=== PATIENT | male | born 2000 | race Caucasian/White ===

== ENCOUNTER 2019-10-09 00:19 | Emergency (ER) | payer SELFPAY ==
[~2019-10-09] VITALS: Ht 172.7 cm; Wt 56.7 kg
[2019-10-09 00:25] VITALS: BP 152/72
--- NOTE | 2019-10-09 00:29 | NUR ---
PT IN TENT.
[2019-10-09 01:24] VITALS: BP 152/72
--- NOTE | 2019-10-09 01:25 | NUR ---
PATIENT LEFT WITHOUT BEING SEEN BY DR. POLANCO. NO FURTHER CARE PROVIDED FOR PATIENT.
== END 2019-10-09 01:25 | disposition left against medical advice (07) ==
LOC: MED 00:19
DX: J02.9 Acute pharyngitis, unspecified (principal); Z53.21 Procedure and treatment not carried out due to patient leaving prior to being seen by health care provider